=== PATIENT | male | born 1955 | race Caucasian/White ===

== ENCOUNTER 2019-04-01 10:57 | Outpatient (CLI) | payer OTHER ==
--- NOTE | 2019-04-01 13:07 | CT ---
CT CHEST WITHOUT CONTRAST: INDICATIONS: History of nicotine use, smoking over 50 years. TECHNIQUE: Multiple axial tomograms obtained following a low dose screening protocol. FINDINGS: The lung javier appear clear. No infiltrate. There is a tiny calcified nodule measuring in the 3 mm range seen in the posterior right lung base an d a similar calcified nodule in the posterior left lung base, each measuring in the 3 mm range. Also evidence of a tiny calcified nodule in the left upper lobe, measuring approximately 3 mm. No oth er evidence of mass or nodule. The mediastinum is unremarkable with nonspecific lymph nodes. Images t hrough the upper abdomen are unremarkable. Osseous structures are unremarkable. IMPRESSION: Lung-RADS 2 - recommended annual low dose screening chest CT. POS: [facility]
== END 2019-04-01 10:58 | disposition home or self-care (01) ==
LOC: CT 10:57
DX: Z87.891 Personal history of nicotine dependence (principal)
CPT/HCPCS: G0297

== ENCOUNTER 2022-11-29 09:02 | Outpatient (CLI) | payer OTHER | END 2022-11-29 09:03 | disposition home or self-care (01) | LOC: BICCT 09:02 | DX: Z12.2 Encounter for screening for malignant neoplasm of respiratory organs (principal); Z87.891 Personal history of nicotine dependence | CPT/HCPCS: 71271 ==